=== PATIENT | female | born 1970 | race Hispanic/Latino ===

== ENCOUNTER 2017-05-25 18:34 | Emergency (ER) | payer SELFPAY ==
[~2017-05-25 18:34] MED LIST: FAMO10TA39 PO; LISI-613 PO
[2017-05-25 18:46] LABS: BASOPHILS % (AUTO) 0.6 % (0.0-5.0); HEMATOCRIT 40.1 % (36-48); LYMPHOCYTES % (AUTO) 19.1 % (21.0-51.0); MEAN CORPUSCULAR HEMOGLOBIN 31.3 pg (27.0-33.0); MEAN CORPUSCULAR HGB CONC 34.6 g/dL (32.0-36.0); MEAN CORPUSCULAR VOLUME 90.3 fL (79-99); MONOCYTES % (AUTO) 9.2 % (3.0-13.0); NEUTROPHILS % (AUTO) 69.1 % (40.0-77.0); PLATELET COUNT (AUTO) 312 K/uL (130-400); RED BLOOD CELL COUNT(AUTO) 4.44 MIL/uL (4.00-5.50); RED CELL DISTRIBUTION WIDTH 12.2 % (11.0-15.5); WHITE BLOOD COUNT (AUTO) 9.3 K/uL (4.8-10.8)
[2017-05-25 18:57] LABS: POTASSIUM 4.2 mmol/L (3.5-5.1)
[2017-05-25 19:01] LABS: ALBUMIN 3.2 g/dL (3.5-5.0); BILIRUBIN,TOTAL 0.2 mg/dL (0.2-1.0); TOTAL PROTEIN, SERUM 7.3 g/dL (6.0-8.3)
[2017-05-25 19:24] LABS: APPEARANCE,URINE Clear (CLEAR); BILIRUBIN,URINE Negative (NEGATIVE); COLOR,URINE Yellow (YELLOW); GLUCOSE, URINE (UA) Negative (NEGATIVE); KETONES,URINE Negative (NEGATIVE); LEUKOCYTE ESTERASE ,URINE Negative (NEGATIVE); NITRATE,URINE Negative (NEGATIVE); OCCULT BLOOD,URINE Negative (NEGATIVE); PH,URINE 6.5 (5.0-8.0); PROTEIN,URINE Negative (NEGATIVE)
[2017-05-25] MEDS ORDERED: KETOROLAC TROMETHAMINE 30MG/ML ONE (19:31)
[2017-05-25] MEDS ORDERED: ONDANSETRON ODT 4 MG TAB ONE (19:31)
[2017-05-25] MEDS ORDERED: FAMOTIDINE 20MG TAB 20 MG TAB ONE (19:31)
[2017-05-25] MEDS ORDERED: MORPHINE SULFATE 4 MG/1ML SYG ONE (22:42)
[2017-05-25] MEDS ORDERED: IOPAMIDOL-370 75 ML VIAL IV ONE (22:50)
== END 2017-05-26 00:36 | disposition home or self-care (01) ==
LOC: EDH 18:34
DX: N83.291 Other ovarian cyst, right side (principal); I10 Essential (primary) hypertension; Z90.710 Acquired absence of both cervix and uterus; Z79.899 Other long term (current) drug therapy
CPT/HCPCS: 36415; 74177; 76705; 80053; 81003; 83690; 85025; 96374; 96375; 99285; J1885; J2270; Q9967

== ENCOUNTER 2017-08-25 10:46 | Emergency (ER) | payer SELFPAY ==
[2017-08-25] MEDS ORDERED: MAG HYDROX/AL HYDROX/SIMETH ES 30 ML SUSP UDCUP ONE (11:14)
[2017-08-25] MEDS ORDERED: LIDOCAINE HCL 2% VISCOUS 15 ML UDCUP ONE (11:14)
[2017-08-25] MEDS ORDERED: ONDANSETRON ODT 4 MG TAB ONE (11:15)
[2017-08-25 11:26] LABS: BASOPHILS % (AUTO) 0.5 % (0.0-5.0); HEMATOCRIT 42.4 % (36-48); MEAN CORPUSCULAR HEMOGLOBIN 31.1 pg (27.0-33.0); MEAN CORPUSCULAR HGB CONC 34.8 g/dL (32.0-36.0); MEAN CORPUSCULAR VOLUME 89.4 fL (79-99); NEUTROPHILS % (AUTO) 76.5 % (40.0-77.0); PLATELET COUNT (AUTO) 351 K/uL (130-400); RED BLOOD CELL COUNT(AUTO) 4.75 MIL/uL (4.00-5.50); RED CELL DISTRIBUTION WIDTH 12.6 % (11.0-15.5); WHITE BLOOD COUNT (AUTO) 9.5 K/uL (4.8-10.8)
[2017-08-25 11:35] LABS: APPEARANCE,URINE Clear (CLEAR); BILIRUBIN,URINE Negative (NEGATIVE); COLOR,URINE Yellow (YELLOW); GLUCOSE, URINE (UA) Negative (NEGATIVE); KETONES,URINE Negative (NEGATIVE); LEUKOCYTE ESTERASE ,URINE Negative (NEGATIVE); NITRATE,URINE Negative (NEGATIVE); OCCULT BLOOD,URINE Trace (NEGATIVE); PH,URINE 6.5 (5.0-8.0); PROTEIN,URINE 300 (NEGATIVE); UROBILINOGEN,URINE 0.2 mg/dL (0.2-1.0)
[2017-08-25 11:42] LABS: HCG,QUAL RESULT NEGATIVE (NEGATIVE)
[2017-08-25 11:46] LABS: BACTERIA,URINE Rare /HPF (None Seen); RBC,URINE 0-1 /HPF (0-1); SQUAMOUS EPITHELIAL CELL,UR Few /HPF (0-2)
[2017-08-25 11:48] LABS: AMPHET/METH SCREEN,URINE NEGATIVE (NEGATIVE); BARBITURATE SCREEN, URINE NEGATIVE (NEGATIVE); BENZODIAZEPINES SCREEN,URINE NEGATIVE (NEGATIVE); CANNABINOID SCREEN,URINE NEGATIVE (NEGATIVE); COCAINE SCREEN,URINE NEGATIVE (NEGATIVE); OPIATE SCREEN,URINE NEGATIVE (NEGATIVE); PHENCYCLIDINE SCREEN,URINE NEGATIVE (NEGATIVE)
[2017-08-25 12:05] LABS: CREATININE 0.8 mg/dL (0.5-1.5); POTASSIUM 3.7 mmol/L (3.5-5.1)
[2017-08-25 12:09] LABS: ALBUMIN 3.5 g/dL (3.5-5.0); BILIRUBIN,DIRECT 0.1 mg/dL (0.0-0.3); BILIRUBIN,TOTAL 0.4 mg/dL (0.2-1.0); TOTAL PROTEIN, SERUM 7.6 g/dL (6.0-8.3)
== END 2017-08-25 12:22 | disposition home or self-care (01) ==
LOC: EDH 10:46
DX: K29.00 Acute gastritis without bleeding (principal); Z90.710 Acquired absence of both cervix and uterus
CPT/HCPCS: 36415; 80048; 80076; 80305; 81001; 81025; 83690; 85025

== ENCOUNTER 2018-10-03 11:29 | Emergency (ER) | payer OTHER | END 2018-10-03 12:47 | disposition home or self-care (01) | LOC: EDH 11:29 | DX: S83.8X1A Sprain of other specified parts of right knee, initial encounter (principal); I10 Essential (primary) hypertension; Z90.710 Acquired absence of both cervix and uterus; X50.1XXA Overexertion from prolonged static or awkward postures, initial encounter; Y93.89 Activity, other specified; Y92.64 Mine or pit as the place of occurrence of the external cause; Y99.8 Other external cause status | CPT/HCPCS: 73562 ==

== ENCOUNTER 2018-10-21 14:20 | Emergency (ER) | payer SELFPAY ==
[2018-10-21] MEDS ORDERED: ONDANSETRON ODT 4 MG TAB ONE (14:59)
[2018-10-21] MEDS ORDERED: ACETAMINOPHEN EXTRA STRENGTH 500 MG TABLET ONE (14:59)
[2018-10-21 15:12] LABS: APPEARANCE,URINE SLIGHTLY CLOUDY (CLEAR); BILIRUBIN,URINE Negative (NEGATIVE); COLOR,URINE Yellow (YELLOW); GLUCOSE, URINE (UA) Negative (NEGATIVE); KETONES,URINE Trace mg/dL (NEGATIVE); LEUKOCYTE ESTERASE ,URINE Trace (NEGATIVE); NITRATE,URINE Negative (NEGATIVE); OCCULT BLOOD,URINE Negative (NEGATIVE); PH,URINE 6.5 (5.0-8.0); PROTEIN,URINE Negative (NEGATIVE)
[2018-10-21 15:32] LABS: BACTERIA,URINE Few /HPF (None Seen); MUCUS,URINE Rare LPF (None Seen); RBC,URINE 0-1 /HPF (0-1); SQUAMOUS EPITHELIAL CELL,UR Few /HPF (0-2)
[2018-10-21] MEDS ORDERED: IBUPROFEN 600 MG TABLET ONE (15:48)
== END 2018-10-21 16:54 | disposition home or self-care (01) ==
LOC: EDH 14:20
DX: B34.9 Viral infection, unspecified (principal); I10 Essential (primary) hypertension; Z90.710 Acquired absence of both cervix and uterus
CPT/HCPCS: 81001; 87077; 87088; 87186; 87804

== ENCOUNTER 2018-10-23 13:25 | Emergency (ER) | payer SELFPAY ==
[2018-10-23 14:03] LABS: APPEARANCE,URINE Cloudy (CLEAR); BILIRUBIN,URINE Negative (NEGATIVE); COLOR,URINE Yellow (YELLOW); GLUCOSE, URINE (UA) Negative (NEGATIVE); HCG,QUAL RESULT NEGATIVE (NEGATIVE); KETONES,URINE 15 mg/dL (NEGATIVE); LEUKOCYTE ESTERASE ,URINE Trace (NEGATIVE); NITRATE,URINE Positive (NEGATIVE); OCCULT BLOOD,URINE Small (NEGATIVE); PH,URINE 5.5 (5.0-8.0); PROTEIN,URINE Trace mg/dL (NEGATIVE); UROBILINOGEN,URINE 0.2 mg/dL (0.2-1.0)
[2018-10-23 14:10] LABS: BACTERIA,URINE Moderate /HPF (None Seen); MUCUS,URINE Few LPF (None Seen); RBC,URINE 0-1 /HPF (0-1); SQUAMOUS EPITHELIAL CELL,UR Moderate /HPF (0-2)
[2018-10-23 15:02] LABS: BASOPHILS % (AUTO) 0.3 % (0.0-5.0); EOSINOPHILS % (AUTO) 0.1 % (0.0-8.0); LYMPHOCYTES % (AUTO) 10.5 % (21.0-51.0); MEAN CORPUSCULAR HEMOGLOBIN 30.7 pg (27.0-33.0); MEAN CORPUSCULAR HGB CONC 33.7 g/dL (32.0-36.0); MEAN CORPUSCULAR VOLUME 91.2 fL (79-99); MONOCYTES % (AUTO) 7.6 % (3.0-13.0); NEUTROPHILS % (AUTO) 81.5 % (40.0-77.0); PLATELET COUNT (AUTO) 281 K/uL (130-400); RED BLOOD CELL COUNT(AUTO) 4.72 MIL/uL (4.00-5.50); WHITE BLOOD COUNT (AUTO) 8.6 K/uL (4.8-10.8)
[2018-10-23 15:12] LABS: POTASSIUM 3.1 mmol/L (3.5-5.1)
[2018-10-23 15:16] LABS: BILIRUBIN,TOTAL 0.3 mg/dL (0.2-1.0); TOTAL PROTEIN, SERUM 7.2 g/dL (6.0-8.3)
[2018-10-23] MEDS ORDERED: ONDANSETRON HCL 4 MG/2 ML VIAL ONE (15:29)
[2018-10-23] MEDS ORDERED: SIMETHICONE 80 MG TAB.CHEW ONE (15:30)
[2018-10-23] MEDS ORDERED: KETOROLAC TROMETHAMINE 15MG/ML ONE (15:30)
[2018-10-23] MEDS ORDERED: DICYCLOMINE HCL 10 MG/ML 2ML AMP IM ONE (15:30)
[2018-10-23] MEDS ORDERED: MAGNESIUM OXIDE 400 MG TABLET PO ONE (15:42)
[2018-10-23] MEDS ORDERED: POTASSIUM CHLORIDE 20 MEQ ERTAB PO ONE (15:43)
== END 2018-10-23 16:34 | disposition home or self-care (01) ==
LOC: EDH 13:25
DX: R10.84 Generalized abdominal pain (principal); R19.7 Diarrhea, unspecified; R11.2 Nausea with vomiting, unspecified; E87.6 Hypokalemia; I10 Essential (primary) hypertension; Z90.710 Acquired absence of both cervix and uterus
CPT/HCPCS: 36415; 80053; 81001; 81025; 83690; 85025; 96372; 96374; 96375; 99284; J0500; J1885; J2405

== ENCOUNTER 2020-10-20 11:52 | Emergency (ER) | payer OTHER ==
[~2020-10-20] VITALS: Ht 152.4 cm; Wt 96.6 kg
[~2020-10-20 11:52] MED LIST changes: -LISI-613 PO; +LISI20TA24 PO
[2020-10-20 11:54] VITALS: BP 110/73
[2020-10-20 12:45] LABS: BASOPHILS % (AUTO) 0.4 % (0.0-5.0); EOSINOPHILS % (AUTO) 3.4 % (0.0-8.0); HEMATOCRIT 49.3 % (36-48); LYMPHOCYTES % (AUTO) 27.1 % (21.0-51.0); MEAN CORPUSCULAR HEMOGLOBIN 29.7 pg (27.0-33.0); MEAN CORPUSCULAR HGB CONC 32.3 g/dL (32.0-36.0); MEAN CORPUSCULAR VOLUME 92.1 fL (79-99); MONOCYTES % (AUTO) 8.2 % (3.0-13.0); NEUTROPHILS % (AUTO) 60.6 % (40.0-77.0); PLATELET COUNT (AUTO) 388 K/uL (130-400); RED BLOOD CELL COUNT(AUTO) 5.35 MIL/uL (4.00-5.50); RED CELL DISTRIBUTION WIDTH 12.7 % (11.0-15.5); WHITE BLOOD COUNT (AUTO) 9.5 K/uL (4.8-10.8)
[2020-10-20] MEDS ORDERED: 0.9%NACL 1000ML 1,000 ML IV ONE (13:00)
[2020-10-20] MEDS ORDERED: PANTOPRAZOLE 40 MG/VIAL IVP ONE (13:00)
[2020-10-20] MEDS ORDERED: MORPHINE 2 MG SYG IVP ONE (13:00)
[2020-10-20] MEDS ORDERED: ONDANSETRON 4MG INJ IVP ONE (13:00)
[2020-10-20] MEDS ORDERED: ACETAMINOPHEN 325 MG TAB PO ONE (13:00)
[2020-10-20 13:03] LABS: CREATININE 1.1 mg/dL (0.5-1.5); POTASSIUM 3.5 mmol/L (3.5-5.1)
[2020-10-20 13:07] LABS: BILIRUBIN,TOTAL 0.7 mg/dL (0.2-1.0); TOTAL PROTEIN, SERUM 8.4 g/dL (6.0-8.3)
[2020-10-20] MEDS ORDERED: IOHEXOL-350 75 ML VIAL IV ONE (13:11)
[2020-10-20] MEDS ORDERED: IOHEXOL 350 MG/ML 100ML INFUS..BTL IV ONE (13:13)
[2020-10-20 13:14] LABS: APPEARANCE,URINE CLEAR (CLEAR); BILIRUBIN,URINE SMALL (NEGATIVE); COLOR,URINE YELLOW (YELLOW); GLUCOSE, URINE (UA) NEGATIVE (NEGATIVE); KETONES,URINE NEGATIVE (NEGATIVE); LEUKOCYTE ESTERASE ,URINE NEGATIVE (NEGATIVE); NITRATE,URINE NEGATIVE (NEGATIVE); OCCULT BLOOD,URINE NEGATIVE (NEGATIVE); PH,URINE 5.5 (5.0-8.0); PROTEIN,URINE 30 mg/dL (NEGATIVE); UROBILINOGEN,URINE 0.2 mg/dL (0.2-1.0)
[2020-10-20 13:32] LABS: BACTERIA,URINE Moderate /HPF (None Seen); RBC,URINE 0-1 /HPF (0-1); WBC,URINE 0-1 /HPF (0-1)
[2020-10-20] MEDS ORDERED: CIPR500T10 PO (17:11)
[2020-10-20] MEDS ORDERED: PANT40TA54 PO (17:11)
[2020-10-20] MEDS ORDERED: ONDA4TAB10 PO (17:11)
[2020-10-20] MEDS ORDERED: METR-172 PO (17:11)
[2020-10-20 17:43] VITALS: BP 105/60
== END 2020-10-20 17:44 | disposition home or self-care (01) ==
LOC: EDH 11:52
DX: K52.9 Noninfective gastroenteritis and colitis, unspecified (principal); R11.2 Nausea with vomiting, unspecified; I10 Essential (primary) hypertension; E11.9 Type 2 diabetes mellitus without complications; E78.00 Pure hypercholesterolemia, unspecified; Z90.710 Acquired absence of both cervix and uterus; Z98.890 Other specified postprocedural states; Z79.899 Other long term (current) drug therapy
CPT/HCPCS: 36415; 74177; 76705; 80053; 81001; 82150; 83690; 85025; 87088; 93005; 96361; 96374; 96375; 99285; C9113; J2405; Q9967

== ENCOUNTER 2020-10-30 11:45 | Emergency (ER) | payer OTHER ==
[~2020-10-30] VITALS: Ht 152.4 cm; Wt 96.6 kg
[~2020-10-30 11:45] MED LIST changes: +CIPR500T10 PO; +METR-172 PO; +ONDA4TAB10 PO; +PANT40TA54 PO
[2020-10-30 11:48] VITALS: BP 172/98
[2020-10-30] MEDS ORDERED: ACETAMINOPHEN 325 MG TAB PO ONE (13:30)
[2020-10-30] MEDS ORDERED: ACETAMINOPHEN 325 MG TAB ONE (14:33)
[2020-10-30 14:43] LABS: EOSINOPHILS % (AUTO) 5.4 % (0.0-8.0); HEMATOCRIT 44.9 % (36-48); LYMPHOCYTES % (AUTO) 28.8 % (21.0-51.0); MEAN CORPUSCULAR HEMOGLOBIN 29.8 pg (27.0-33.0); MEAN CORPUSCULAR HGB CONC 32.7 g/dL (32.0-36.0); MEAN CORPUSCULAR VOLUME 90.9 fL (79-99); MONOCYTES % (AUTO) 11.7 % (3.0-13.0); NEUTROPHILS % (AUTO) 52.8 % (40.0-77.0); PLATELET COUNT (AUTO) 321 K/uL (130-400); RED BLOOD CELL COUNT(AUTO) 4.94 MIL/uL (4.00-5.50); RED CELL DISTRIBUTION WIDTH 12.9 % (11.0-15.5); WHITE BLOOD COUNT (AUTO) 7.4 K/uL (4.8-10.8)
[2020-10-30 14:45] LABS: APPEARANCE,URINE Cloudy (CLEAR); BILIRUBIN,URINE Small (NEGATIVE); COLOR,URINE Dark Yellow (YELLOW); GLUCOSE, URINE (UA) Negative (NEGATIVE); KETONES,URINE Trace mg/dL (NEGATIVE); LEUKOCYTE ESTERASE ,URINE Trace (NEGATIVE); NITRATE,URINE Negative (NEGATIVE); OCCULT BLOOD,URINE Negative (NEGATIVE); PH,URINE 5.5 (5.0-8.0); PROTEIN,URINE POS 1+ mg/dL (NEGATIVE)
[2020-10-30 14:49] LABS: CREATININE 0.9 mg/dL (0.5-1.5); POTASSIUM 3.5 mmol/L (3.5-5.1)
[2020-10-30 14:53] LABS: ALBUMIN 3.6 g/dL (3.5-5.0); BILIRUBIN,TOTAL 0.4 mg/dL (0.2-1.0); TOTAL PROTEIN, SERUM 7.9 g/dL (6.0-8.3)
[2020-10-30 15:08] LABS: HCG,QUAL RESULT NEGATIVE (NEGATIVE)
[2020-10-30 15:19] LABS: B-TYPE NATRIURETIC PEPTIDE 14 pg/mL (0-100)
[2020-10-30 15:24] LABS: PROTHROMBIN TIME 10.9 SEC (9.6-11.6)
[2020-10-30 15:26] LABS: PARTIAL THROMBOPLASTIN TIME 28.2 SEC (26.3-35.5)
[2020-10-30 15:28] LABS: BACTERIA,URINE Few /HPF (None Seen); RBC,URINE 0-1 /HPF (0-1); SQUAMOUS EPITHELIAL CELL,UR Moderate /HPF (0-2)
[2020-10-30 15:29] LABS: CALCIUM OXALATE CRYSTALS,UR Few /LPF (None Seen); MUCUS,URINE Few LPF (None Seen)
[2020-10-30] MEDS ORDERED: GUAI-899 PO (15:45)
[2020-10-30] MEDS ORDERED: IBUP-2070 PO (15:45)
[2020-10-30] MEDS ORDERED: PSEU120T62 PO (15:45)
[2020-10-30] MEDS ORDERED: ALBU8.5H8 IH (15:45)
[2020-10-30] MEDS ORDERED: FLUT9.9S NS (15:45)
[2020-10-30] MEDS ORDERED: LIDOCAINE HCL-MPF 1% 2ML VIAL ONE (15:53)
[2020-10-30] MEDS ORDERED: KETOROLAC 30MG VIAL (30MG/ML) IM ONE (16:30)
[2020-10-30] MEDS ORDERED: CEFTRIAXONE 500MG VIAL IM SCH (16:30)
== END 2020-10-30 16:09 | disposition home or self-care (01) ==
LOC: EDH 11:45
DX: J01.90 Acute sinusitis, unspecified (principal); Z20.822 Contact with and (suspected) exposure to COVID-19; E11.9 Type 2 diabetes mellitus without complications; E78.00 Pure hypercholesterolemia, unspecified; I10 Essential (primary) hypertension; K21.9 Gastro-esophageal reflux disease without esophagitis; Z79.1 Long term (current) use of non-steroidal anti-inflammatories (NSAID); Z79.899 Other long term (current) drug therapy; Z90.710 Acquired absence of both cervix and uterus
CPT/HCPCS: 36415; 71045; 80053; 81001; 81025; 82550; 83690; 83880; 84484; 85025; 85610; 85730; 87635; 87804 ×2; 87880; 93005 ×2; 96372 ×2; 99285; C9803; J0696; J1885; J3490

== ENCOUNTER 2021-06-17 19:48 | Emergency (ER) | payer BC, OTHER ==
[~2021-06-17] VITALS: Ht 152.4 cm; Wt 93.9 kg
[~2021-06-17 19:48] MED LIST changes: +ALBU8.5H8 IH; +FLUT9.9S NS; +GUAI-899 PO; +IBUP-2070 PO; +PSEU120T62 PO
[2021-06-17 22:19] VITALS: BP 178/84
[2021-06-17] MEDS ORDERED: KETOROLAC 30MG VIAL (30MG/ML) IM ONE (22:30)
[2021-06-17] MEDS ORDERED: IBUP-2070 PO (23:12)
== END 2021-06-17 23:21 | disposition home or self-care (01) ==
LOC: EDH 19:48
DX: M25.511 Pain in right shoulder (principal); E11.9 Type 2 diabetes mellitus without complications; I10 Essential (primary) hypertension; Z79.899 Other long term (current) drug therapy; Z98.890 Other specified postprocedural states
CPT/HCPCS: 73030; 96372; 99284; J1885

== ENCOUNTER 2021-07-30 10:58 | Observation (INO) | payer BC ==
[~2021-07-30] VITALS: Ht 152.4 cm; Wt 94.5 kg
[2021-07-30 11:22] LABS: BASOPHILS % (AUTO) 0.6 % (0.0-5.0); EOSINOPHILS % (AUTO) 3.8 % (0.0-8.0); HEMATOCRIT 44.2 % (36-48); LYMPHOCYTES % (AUTO) 37.9 % (21.0-51.0); MEAN CORPUSCULAR HEMOGLOBIN 29.9 pg (27.0-33.0); MEAN CORPUSCULAR VOLUME 90.6 fL (79-99); MONOCYTES % (AUTO) 8.1 % (3.0-13.0); PLATELET COUNT (AUTO) 277 K/uL (130-400); RED BLOOD CELL COUNT(AUTO) 4.88 MIL/uL (4.00-5.50); RED CELL DISTRIBUTION WIDTH 12.5 % (11.0-15.5); WHITE BLOOD COUNT (AUTO) 5.3 K/uL (4.8-10.8)
[2021-07-30 11:31] LABS: APPEARANCE,URINE Cloudy (CLEAR); BILIRUBIN,URINE Negative (NEGATIVE); COLOR,URINE Yellow (YELLOW); GLUCOSE, URINE (UA) Negative (NEGATIVE); KETONES,URINE Negative (NEGATIVE); LEUKOCYTE ESTERASE ,URINE Negative (NEGATIVE); NITRATE,URINE Negative (NEGATIVE); OCCULT BLOOD,URINE Negative (NEGATIVE); PH,URINE 5.5 (5.0-8.0); PROTEIN,URINE Negative (NEGATIVE)
[2021-07-30 11:33] LABS: CREATININE 0.8 mg/dL (0.5-1.5); POTASSIUM 3.7 mmol/L (3.5-5.1)
[2021-07-30 11:34] LABS: INR 0.96 (0.85-1.15); PROTHROMBIN TIME 10.5 SEC (9.6-11.6)
[2021-07-30 11:38] LABS: AMPHET/METH SCREEN,URINE NEGATIVE (NEGATIVE); BARBITURATE SCREEN, URINE NEGATIVE (NEGATIVE); BENZODIAZEPINES SCREEN,URINE NEGATIVE (NEGATIVE); CANNABINOID SCREEN,URINE NEGATIVE (NEGATIVE); COCAINE SCREEN,URINE NEGATIVE (NEGATIVE); OPIATE SCREEN,URINE NEGATIVE (NEGATIVE); PHENCYCLIDINE SCREEN,URINE NEGATIVE (NEGATIVE)
[2021-07-30 11:38] LABS: ALBUMIN 3.3 g/dL (3.5-5.0); BILIRUBIN,TOTAL 0.4 mg/dL (0.2-1.0); TOTAL PROTEIN, SERUM 7.3 g/dL (6.0-8.3)
[2021-07-30] MEDS ORDERED: SUCRALFATE 1 GM TABLET PO ONE (13:00)
[2021-07-30] MEDS ORDERED: PANTOPRAZOLE 40 MG/VIAL IVP ONE (13:00)
[2021-07-30] MEDS ORDERED: KETOROLAC 15MG/ML VIAL (15MG/ML) IV ONE (13:00)
[2021-07-30] MEDS ORDERED: ONDANSETRON 4MG INJ IV PRN (18:30)
[2021-07-30] MEDS ORDERED: ACETAMINOPHEN 325 MG TAB PO PRN ×2 (18:30)
[2021-07-30] MEDS ORDERED: MORPHINE 2 MG SYG IV PRN (18:30)
[2021-07-30 18:46] LABS: BASOPHILS % (AUTO) 0.3 % (0.0-5.0); EOSINOPHILS % (AUTO) 2.3 % (0.0-8.0); HEMATOCRIT 42.2 % (36-48); LYMPHOCYTES % (AUTO) 37.3 % (21.0-51.0); MEAN CORPUSCULAR HEMOGLOBIN 29.2 pg (27.0-33.0); MEAN CORPUSCULAR HGB CONC 32.2 g/dL (32.0-36.0); MEAN CORPUSCULAR VOLUME 90.6 fL (79-99); MONOCYTES % (AUTO) 8.4 % (3.0-13.0); NEUTROPHILS % (AUTO) 51.3 % (40.0-77.0); PLATELET COUNT (AUTO) 256 K/uL (130-400); RED BLOOD CELL COUNT(AUTO) 4.66 MIL/uL (4.00-5.50); RED CELL DISTRIBUTION WIDTH 12.5 % (11.0-15.5); WHITE BLOOD COUNT (AUTO) 6.9 K/uL (4.8-10.8)
[2021-07-30] MEDS: NITROGLYCERIN 1GM OINT 1 INCH/1GM TD SCH (18:49)
[2021-07-30 19:12] LABS: THYROID STIMULATING HORMONE 0.8 uIU/mL (0.36-3.74)
[2021-07-30] MEDS: FAMOTIDINE 20MG VIAL IV SCH (20:54)
[2021-07-30] MEDS: METOPROLOL TARTRATE 25 MG TAB PO SCH (20:54)
[2021-07-30] MEDS ORDERED: LISINOPRIL 20 MG TABLET PO ONE (22:00)
[2021-07-31 02:34] LABS: HEMOGLOBIN A1C 6.1 % (4.0-6.0)
[2021-07-31] MEDS: NITROGLYCERIN 1GM OINT 1 INCH/1GM TD SCH ×3 (02:59→18:11)
[2021-07-31] MEDS: FAMOTIDINE 20MG VIAL IV SCH ×2 (09:00→20:26)
[2021-07-31] MEDS: METOPROLOL TARTRATE 25 MG TAB PO SCH ×2 (09:00→20:25)
[2021-07-31] MEDS: LISINOPRIL 20 MG TABLET PO SCH ×2 (09:00→20:25)
[2021-07-31] MEDS: ENOXAPARIN SODIUM 40 MG/0.4 ML SYRINGE SQ SCH (09:01)
[2021-07-31] MEDS ORDERED: IOHEXOL 350 MG/ML 100ML INFUS..BTL IV ONE (09:07)
[2021-07-31] MEDS ORDERED: METOPROLOL TARTRATE 1 MG/ML 5ML VIAL IV ONE (09:30)
[2021-07-31 14:29] VITALS: BP 119/63
[2021-07-31 20:24] VITALS: BP 135/72
[2021-08-01 00:24] VITALS: BP 147/75
[2021-08-01] MEDS ORDERED: omeprazole (01:21)
[2021-08-01] MEDS ORDERED: METF-444 PO (01:21)
[2021-08-01] MEDS ORDERED: OXYBUTININ (01:21)
[2021-08-01] MEDS ORDERED: LISI40TA9 PO (01:21)
[2021-08-01] MEDS: NITROGLYCERIN 1GM OINT 1 INCH/1GM TD SCH ×2 (02:34→10:30)
[2021-08-01 04:28] VITALS: BP 117/77
[2021-08-01 04:50] LABS: HEMATOCRIT 38.4 % (36-48); MEAN CORPUSCULAR HEMOGLOBIN 30.8 pg (27.0-33.0); MEAN CORPUSCULAR HGB CONC 34.1 g/dL (32.0-36.0); MEAN CORPUSCULAR VOLUME 90.1 fL (79-99); RED BLOOD CELL COUNT(AUTO) 4.26 MIL/uL (4.00-5.50); RED CELL DISTRIBUTION WIDTH 12.4 % (11.0-15.5); WHITE BLOOD COUNT (AUTO) 6.2 K/uL (4.8-10.8)
[2021-08-01 05:23] LABS: CREATININE 0.9 mg/dL (0.5-1.5); POTASSIUM 3.9 mmol/L (3.5-5.1)
[2021-08-01 08:00] VITALS: BP 128/73
[2021-08-01] MEDS: FAMOTIDINE 20MG VIAL IV SCH (08:46)
[2021-08-01] MEDS: ENOXAPARIN SODIUM 40 MG/0.4 ML SYRINGE SQ SCH (08:46)
[2021-08-01] MEDS: LISINOPRIL 20 MG TABLET PO SCH (08:46)
[2021-08-01] MEDS: METOPROLOL TARTRATE 25 MG TAB PO SCH (08:46)
[2021-08-01 12:00] VITALS: BP 153/67
[2021-08-01 14:00] VITALS: BP 134/82
== END 2021-08-01 18:50 | disposition home or self-care (01) ==
LOC: EDH 10:58 → EDHIP 18:19 → 4DH 07-31 15:30
PROVIDERS: ADMIT Internal Medicine; ATTEND Internal Medicine
DX: R07.89 Other chest pain (principal); K21.9 Gastro-esophageal reflux disease without esophagitis; R94.31 Abnormal electrocardiogram [ECG] [EKG]; E11.9 Type 2 diabetes mellitus without complications; I10 Essential (primary) hypertension; E66.9 Obesity, unspecified; Z68.38 Body mass index [BMI] 38.0-38.9, adult; Z90.710 Acquired absence of both cervix and uterus; Z79.899 Other long term (current) drug therapy
CPT/HCPCS: 36415 ×3; 71045; 75574; 80048; 80053; 80061; 80305; 81003; 82550 ×3; 83036; 83874 ×3; 83880; 84443; 84484 ×5; 85025 ×2; 85027; 85610; 93005 ×5; 93306; 93356; 96372 ×2; 96374; 96375; 96376 ×2; 99285; C9113; G0378 ×48; J1650 ×2; J1885; J3490 ×5; Q9967

== ENCOUNTER 2021-10-22 22:45 | Emergency (ER) | payer BC ==
[~2021-10-22] VITALS: Ht 149.9 cm; Wt 97.1 kg
[~2021-10-22 22:45] MED LIST changes: -CIPR500T10 PO; -FAMO10TA39 PO; -GUAI-899 PO; -IBUP-2070 PO; -LISI20TA24 PO; +LISI40TA9 PO; +METF-444 PO; -METR-172 PO; -ONDA4TAB10 PO; +OXYBUTININ; -PANT40TA54 PO; -PSEU120T62 PO; +omeprazole
[2021-10-22] MEDS ORDERED: KETOROLAC 60 MG VIAL (30MG/ML) IM ONE (23:30)
[2021-10-23] MEDS ORDERED: NAPR-1180 PO (00:03)
[2021-10-23 00:49] VITALS: BP 162/88
== END 2021-10-23 00:50 | disposition home or self-care (01) ==
LOC: EDH 22:45
DX: M25.572 Pain in left ankle and joints of left foot (principal); M79.672 Pain in left foot; I10 Essential (primary) hypertension; E66.9 Obesity, unspecified; Z68.41 Body mass index [BMI] 40.0-44.9, adult; K21.9 Gastro-esophageal reflux disease without esophagitis; Z79.899 Other long term (current) drug therapy; Z98.890 Other specified postprocedural states
CPT/HCPCS: 99284; 73610; 73630; 96372; J1885

== ENCOUNTER 2022-09-14 11:59 | Emergency (ER) | payer BC ==
[~2022-09-14] VITALS: Ht 152.4 cm; Wt 97.1 kg
[~2022-09-14 11:59] MED LIST changes: +NAPR-1180 PO
[2022-09-14] MEDS ORDERED: IBUPROFEN 800 MG TAB PO SCH (12:30)
[2022-09-14 13:02] LABS: BASOPHILS % (AUTO) 0.3 % (0.0-5.0); EOSINOPHILS % (AUTO) 0.1 % (0.0-8.0); HEMATOCRIT 45.2 % (36-48); LYMPHOCYTES % (AUTO) 17.6 % (21.0-51.0); MEAN CORPUSCULAR HEMOGLOBIN 29.5 pg (27.0-33.0); MEAN CORPUSCULAR HGB CONC 32.7 g/dL (32.0-36.0); MONOCYTES % (AUTO) 10.9 % (3.0-13.0); NEUTROPHILS % (AUTO) 70.6 % (40.0-77.0); PLATELET COUNT (AUTO) 275 K/uL (130-400); RED BLOOD CELL COUNT(AUTO) 5.02 MIL/uL (4.00-5.50); RED CELL DISTRIBUTION WIDTH 13.1 % (11.0-15.5); WHITE BLOOD COUNT (AUTO) 12.8 K/uL (4.8-10.8)
[2022-09-14 13:05] LABS: APPEARANCE,URINE CLEAR (CLEAR); BILIRUBIN,URINE NEGATIVE (NEGATIVE); COLOR,URINE YELLOW (YELLOW); GLUCOSE, URINE (UA) NEGATIVE (NEGATIVE); KETONES,URINE NEGATIVE (NEGATIVE); LEUKOCYTE ESTERASE ,URINE NEGATIVE Leu/uL (NEGATIVE); NITRATE,URINE NEGATIVE (NEGATIVE); OCCULT BLOOD,URINE SMALL (NEGATIVE); PROTEIN,URINE 30 mg/dL (NEGATIVE); UROBILINOGEN,URINE 0.2 mg/dL (0.2-1.0)
[2022-09-14 13:33] LABS: CREATININE 1.1 mg/dL (0.5-1.5); POTASSIUM 3.8 mmol/L (3.5-5.1)
[2022-09-14 13:38] LABS: ALBUMIN 3.7 g/dL (3.5-5.0); TOTAL PROTEIN, SERUM 8.6 g/dL (6.0-8.3)
[2022-09-14 13:39] LABS: BACTERIA,URINE RARE /HPF (None Seen); MUCUS,URINE RARE LPF (None Seen); SQUAMOUS EPITHELIAL CELL,UR FEW /HPF (0-2); WBC,URINE 0-1 /HPF (0-1)
[2022-09-14] MEDS ORDERED: IBUP-2077 PO (14:22)
[2022-09-14 16:18] VITALS: BP 136/71
== END 2022-09-14 16:26 | disposition home or self-care (01) ==
LOC: EDH 11:59
DX: B34.9 Viral infection, unspecified (principal); K21.9 Gastro-esophageal reflux disease without esophagitis; I10 Essential (primary) hypertension; Z79.84 Long term (current) use of oral hypoglycemic drugs; Z79.899 Other long term (current) drug therapy; Z20.822 Contact with and (suspected) exposure to COVID-19
CPT/HCPCS: 99284; 71045; 87635; 84484; 80053; 85025; 87804 ×2; 81001; 36415; 93005; C9803